=== PATIENT | male | born 1945 | race Caucasian/White ===

== ENCOUNTER 2020-06-19 08:26 | Inpatient (IN) ==
--- NOTE | 2020-06-06 15:46 | PAT Medication Instructions ---
Medication Instructions Date of Service June 06, 2020 Home Medications Calcium (Caltrate) 1,200 mg PO DAILY Betacarotine 2,500 mg PO QAM Testosterone Injection 1 dose INJ MONTHLY Potassium 1 tab PO QPM ascorbic acid (vitamin C) 1,000 mg PO QPM atorvastatin 20 mg PO QPM calcium carbonate-vitamin D3 [Calcium 600 + D(3)] 1 cap PO QPM ferrous sulfate 325 mg PO QPM magnesium oxide 400 mg PO QPM metformin 500 mg PO BID vitamin B complex 1 tab PO QPM vitamin E 800 unit PO QPM zinc acetate 50 mg PO QPM Continue as directed Testosterone Injection 1 dose INJ MONTHLY STOP taking 2 weeks before surgery If surgery is within 2 weeks, stop taking as soon as possible. vitamin E 800 unit PO QPM DO NOT take the morning of surgery Calcium (Caltrate) 1,200 mg PO DAILY Betacarotine 2,500 mg PO QAM metformin 500 mg PO BID Take evening before surgery Potassium 1 tab PO QPM ascorbic acid (vitamin C) 1,000 mg PO QPM atorvastatin 20 mg PO QPM calcium carbonate-vitamin D3 [Calcium 600 + D(3)] 1 cap PO QPM ferrous sulfate 325 mg PO QPM magnesium oxide 400 mg PO QPM metformin 500 mg PO BID vitamin B complex 1 tab PO QPM zinc acetate 50 mg PO QPM NOTHING TO EAT OR DRINK AFTER MIDNIGHT Insulin Dependent Diabetic Patients * Test your blood sugar the morning of surgery * If Blood Sugar is GREATER THAN 150, take HALF of your regular dose of: * If Blood Sugar is LESS THAN 150, DO NOT TAKE ANY: Other Notes If you have any questions please call us at [phone] or [phone] or [phone] or [phone]
--- NOTE | 2020-06-07 14:27 | Anesthesiology Consultation ---
Date of Service June 07, 2020 Assessment & Plan (1) Encounter for pre-operative examination: COVID Status: As of 06/07 assessment, patient denies travel to endemic area, known exposure/sick contacts, or symptoms of COVID19. Patient instructed that they and their household members must follow strict social distancing guidelines, wear a mask in public and avoid travel for 14 days prior to surgery. Preoperative COVID19 testing to be completed prior to surgery per surgeon's arra ngements. Patient made aware to self-isolate as much as possible between COVID testing and surgery. Chart Review Chart Review: Acceptable Risk for Surgery (pending response from PCP/clearance) and Patient seen in Pre Admission Testing Teaching & Discussion Instructed NPO after midnight before surgery, except medications with 15 cc of water. Medication instructions provided according to the PAT guidelines. History Surgery Operation Date: 06/19/20 07:45 Proposed Procedures p L4-S1 Decompression and Fusion, Spinal Cord Monitoring - Tomi Roa, Height/Weight Height: 5 ft 6 in Weight: 68.9 kg Allergies Allergy/AdvReac Type Severity Reaction Status Date / Time Penicillins AdvReac Unknown JOINT ACHES Verified 06/06/20 15:04 Medications Home Medications Medication Instructions Recorded Confirmed Last Taken Calcium (Caltrate) 1,200 mg PO DAILY #0 tab 04/07/15 Unknown Betacarotine 2,500 mg PO QAM 06/06/20 Unknown Injection 1 dose INJ MONTHLY 06/06/20 Unknown Potassium 1 tab PO QPM 06/06/20 06/06/20 Unknown ascorbic acid (vitamin C) [Vitamin 1,000 mg PO QPM 06/06/20 06/06/20 Unknown C] atorvastatin 20 mg PO QPM 06/06/20 06/06/20 Unknown calcium carbonate-vitamin D3 1 cap PO QPM 06/06/20 06/06/20 Unknown [Calcium 600 + D(3)] ferrous sulfate 325 mg PO QPM 06/06/20 06/06/20 Unknown magnesium oxide 400 mg PO QPM 06/06/20 06/06/20 Unknown metformin 500 mg PO BID 06/06/20 06/06/20 Unknown vitamin B complex 1 tab PO QPM 06/06/20 06/06/20 Unknown vitamin E 800 unit PO QPM 06/06/20 06/06/20 Unknown zinc acetate 50 mg PO QPM 06/06/20 06/06/20 Unknown Past Medical History Medical History (Updated 06/07/20 @ 14:29 by Josiah Valdez) Arthritis Cardiac murmur DX'D 2003 Chronic back pain TO RIGHT LEG Depression Diabetes mellitus, type 2 History of colorectal cancer s/p surgical excision Hyperlipidemia Kidney stones Exercise / Class Metabolic Activity II 4-5 Yardwork/Stairs/Walk up hill (Has been very limited by back pain since 09/2019, 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 Denies any chest pain.) Past Family History Family History (Updated 06/06/20 @ 15:23 by Ami Jackson RN) Father Family hx of colon cancer Family history of diabetes mellitus Grandfather (Paternal) Family hx of colon cancer Family/Other Family hx of colon cancer Past Surgical History Surgical History Colostomy in place RE-CREATED COLOSTOMY-IN PLACE CURRENTLY History of bowel resection COLORECTAL CANCER-2004 History of colonoscopy History of colostomy reversal History of cystoscopy FOR KIDNEY STONES History of repair of rotator cuff LEFT History of total hip arthroplasty RIGHT Hx of resection of liver FOR CANCER Past Anesthesia History No Hx of Anesthesia Complications and No Family Hx of Anesthesia Complications History of PONV No Hx of PONV and No Hx of Motion Sickness Social History Smoking Status: Never smoker tobacco type: smokeless tobacco Do You Dip or Chew Tobacco: Yes (1 CAN X PER DAY, ADVISED NONE AM DOS) Hx Alcohol Use: No Hx Substance Use: No Review of Systems Pt denies any recent chest pain, shortness of breath, palpitations, cough, fever, URI, or uncontrolled acid reflux. Physical Exam Vital Signs BP: 124/76 P: 81bpm SPO2: 98% RA T: 98.4 F R: 16 ENMT Mouth: + dentures (lower partial) and + chipped teeth (lower L side broken); no loose teeth Thyromental Distance: > or= 3.5 Finger Breadths (3.5) Mallampati Class: II Neck normal visual inspection; neck extension not limited Respiratory normal respiratory effort Auscultation: lungs clear to auscultation bilaterally Cardiovascular Rate/Rhythm: regular rate and regular rhythm Heart Sounds: + murmur (II/) Vessels: no carotid bruit Testing Laboratory Results 06/07/20 14:40 PT 11.7 Seconds (9.0-12.0) 06/07/20 14:40 INR 1.1 (0.9-1.1) 06/07/20 14:40 APTT 28.6 Seconds (21.0-31.0) 06/07/20 14:40 Urine Color Dark Yellow 06/07/20 Unknown Urine Appearance Cloudy (Clear) A 06/07/20 Unknown Urine pH 5.0 (4.5-7.5) 06/07/20 Unknown Ur Specific [place] 1.026 (1.000-1.030) 06/07/20 Unknown Urine Protein 2+ (Negative) H 06/07/20 Unknown Urine Glucose (UA) Negative (Negative) 06/07/20 Unknown Urine Ketones Negative (Negative) 06/07/20 Unknown Urine Nitrite Negative (Negative) 06/07/20 Unknown Ur Leukocyte Esterase 2+ (Negative) H 06/07/20 Unknown Urine WBC (Auto) >30 /hpf (0-5) H 06/07/20 Unknown Urine RBC (Auto) 0-4 /hpf (0-4) 06/07/20 Unknown U Hyaline Cast (Auto) 10-30 /lpf (0-5) H 06/07/20 Unknown U Epithel Cells (Auto) 5-10 /lpf (0-5) H 06/07/20 Unknown Urine Bacteria (Auto) Negative (Negative) 06/07/20 Unknown Blood Type O Positive 06/07/20 14:40 Antibody Screen NEGATIVE 06/07/20 14:40 Electrocardiogram Date: 06/07/20 Findings: + NSR @ (75bpm) Chest X-Ray Date: 06/07/20 Findings: + NAD
--- NOTE | 2020-06-07 15:10 | XRay Report ---
XR chest Pre-admission PA/Lat HISTORY: 75 years-old Male pat preoperative exam. No acute chest complaints COMPARISON: Chest radiograph 12/16/2013 TECHNIQUE: PA and lateral views of the chest FINDINGS: Cardiomediastinal and hilar silhouettes are within normal limits. Mitral annular calcifications. Calc ified plaque of the thoracic aortic arch. No pneumothorax, pleural effusion, airspace consolidation o r overt pulmonary edema. Degenerative changes of the shoulders and spine. IMPRESSION: No acute process. ACT 112: Negative or not required by law. The above report was generated using voice recognition software. It may contain grammatical, syntax o r spelling errors. Electronically signed by: Michael Zavala M.D. 06/07/2020 3:08 PM
[2020-06-07 15:38] LABS: Basophils # (auto) 0.01 K/uL (0-0.2); Basophils % (auto) 0.2 %; Eosinophils # (auto) 0.04 K/uL (0-0.5); Eosinophils % (auto) 0.7 %; Hematocrit (blood only) 42.4 % (42-52); Hemoglobin 14.6 g/dL (14.0-18.0); Immature Granulocytes # (auto) 0.01 K/uL (0.00-0.02); Immature Granulocytes % (auto) 0.2 %; Lymphocytes # (auto) 0.94 K/uL (1.2-3.4); Lymphocytes % (auto) 15.5 %; Mean Corpuscular Hgb Conc 34.4 g/dL (32-36); Mean Platelet Volume 11.4 fL (7.4-10.4); Monocytes # (auto) 0.47 K/uL (0.11-0.59); Monocytes % (auto) 7.8 %; Neutrophils # (auto) 4.58 K/uL (1.4-6.5); Neutrophils % (auto) 75.6 %; Platelet Count 120 K/uL (130-400); RDW Coefficient of Variation 13.7 % (11.5-14.5); RDW Standard Deviation 45.1 fL (36.4-46.3); Red Blood Count 4.71 M/uL (4.7-6.1); White Blood Count 6.05 K/uL (4.8-10.8)
[2020-06-07 15:44] LABS: Appearance Urine Cloudy (Clear); Bacteria Urine Automated Negative (Negative); Bilirubin Urine Negative (Negative); Blood Urine 2+ (Negative); Color Urine Dark Yellow; Glucose Urine UA Negative (Negative); Ketones Urine Negative (Negative); Leukocyte Esterase Urine 2+ (Negative); Nitrite Urine Negative (Negative); Protein Urine 2+ (Negative); RBC Urine Automated 0-4 /hpf (0-4); Specific Gravity Urine 1.026 (1.000-1.030); Urobilinogen Urine Negative (Negative); WBC Urine Automated >30 /hpf (0-5)
[2020-06-07 15:52] LABS: INR 1.1 (0.9-1.1); Partial Thromboplastin Time 28.6 Seconds (21.0-31.0); Prothrombin Time 11.7 Seconds (9.0-12.0)
[2020-06-07 16:17] LABS: Calcium Oxalate Crystals Urine Present (None Prsent); Mucus Urine Present (None Prsent)
--- NOTE | 2020-06-08 06:36 | Electrocardiogram Report ---
Test Reason : Blood Pressure : / mmHG Vent. Rate : 075 BPM Atrial Rate : 075 BPM P-R Int : 156 ms QRS Dur : 096 ms QT Int : 374 ms P-R-T Axes : 037 035 049 degrees QTc Int : 417 ms Normal sinus rhythm Normal ECG When compared with ECG of 16-DEC-2013 12:34, No significant change was found Confirmed by Lobito Paulino ([id number]) on 06/08/2020 6:36:31 AM Referred By: Tomi Roa Confirmed By:Lobito Paulino
[~2020-06-19 08:26] MED LIST: CLINDAMYCIN 600 MG/54 ML BAG IV SCH; GABAPENTIN 300 MG CAP PO SCH; LR 15ML/HR IV SCH
[2020-06-19] MEDS ORDERED: ePHEDrine sulfate 50 MG/ML AMP IV PRN (09:08)
[2020-06-19] MEDS ORDERED: ONDANSETRON INJ 2 MG/ML 2 ML VIAL IV PRN ×2 (09:08→13:59)
[2020-06-19] MEDS ORDERED: ATROPINE SULFATE 0.1 MG/ML 10ML SYR IV PRN (09:08)
--- NOTE | 2020-06-19 09:28 | History & Physical Bridge Note ---
Date of Service June 19, 2020 History & Physical Bridge Note I have examined the patient, reviewed the History & Physical and in the interval since the performance of the History & Physical I have noted the following changes of clinical significance: no changes noted
--- NOTE | 2020-06-19 09:29 | History & Physical Report ---
Date of Service June 19, 2020 Assessment & Plan (1) Neurogenic claudication due to lumbar spinal stenosis: Admission and Anticipated Discharge Date Admission Date: L4-S1 decompression fusion History of Present Illness Chief Complaint: Back and leg pain Primary Care Provider: Niraj Cornejo MD This is a 75-year-old male who presents with worsening back and leg pain. After failing course of nonoperative care is here for surgical invention. Allergies Allergy/AdvReac Type Severity Reaction Status Date / Time Penicillins AdvReac Unknown JOINT ACHES Verified 06/19/20 09:00 Home Medications Home Medications Medication Instructions Recorded Confirmed Type Calcium (Caltrate) 1,200 mg PO DAILY #0 tab 04/07/15 History Betacarotine 2,500 mg PO QAM 06/06/20 History Injection 1 dose INJ MONTHLY 06/06/20 06/19/20 History Potassium 1 tab PO QPM 06/06/20 06/19/20 History ascorbic acid (vitamin C) [Vitamin 1,000 mg PO QPM 06/06/20 06/19/20 History C] atorvastatin 20 mg PO QPM 06/06/20 06/06/20 History calcium carbonate-vitamin D3 1 cap PO QPM 06/06/20 06/06/20 History [Calcium 600 + D(3)] ferrous sulfate 325 mg PO QPM 06/06/20 06/06/20 History magnesium oxide 400 mg PO QPM 06/06/20 06/19/20 History metformin 500 mg PO BID 06/06/20 06/19/20 History vitamin B complex 1 tab PO QPM 06/06/20 06/19/20 History vitamin E 800 unit PO QPM 06/06/20 06/19/20 History zinc acetate 50 mg PO QPM 06/06/20 06/19/20 History Past Med/Surg History Medical History (Updated 06/19/20 @ 09:29 by Tomi Roa DO) Arthritis Cardiac murmur DX'D 2004 Chronic back pain TO RIGHT LEG Depression Diabetes mellitus, type 2 History of colorectal cancer s/p surgical excision Hyperlipidemia Kidney stones Surgical History Colostomy in place RE-CREATED COLOSTOMY-IN PLACE CURRENTLY History of bowel resection COLORECTAL CANCER-2005 History of colonoscopy History of colostomy reversal History of cystoscopy FOR KIDNEY STONES History of repair of rotator cuff LEFT History of total hip arthroplasty RIGHT Hx of resection of liver FOR CANCER Family History (Updated 06/06/20 @ 15:23 by Ami Jackson RN) Father Family hx of colon cancer Family history of diabetes mellitus Grandfather (Paternal) Family hx of colon cancer Family/Other Family hx of colon cancer Social History Smoking Status: Never smoker Second Hand Exposure: Yes (EDGAR IN LAW); Do You Dip or Chew Tobacco: Yes (1 CAN X PER DAY, ADVISED NONE AM DOS); Hx Alcohol Use: No Hx Substance Use: No Preferred Language: Lebanese Communication Ability: Effective Golf Club Manager Required: No Beliefs That Will Affect Care: None Current Living Situation: Family Other Information That Helps Us Care for You: No Feels Safe at Home: Yes Safety Concerns: Feels Safe At This Time Physical Exam Physical Exam: Patient is alert and oriented neurologically intact. Heart regular rate and rhythm. Lungs clear to auscultation.
[2020-06-19] MEDS ORDERED: BACITRACIN INJ 50,000 UNIT VIAL ONE (09:39)
[2020-06-19] MEDS ORDERED: BUPIVACAINE/EPINEPHRINE 0.25% 1:200,000 30 ML VIAL ONE ×2 (09:39→10:20)
[2020-06-19] MEDS ORDERED: fentaNYL citrate 100 MCG/2 ML VIAL ONE (09:44)
[2020-06-19] MEDS ORDERED: MIDAZOLAM HCL 1 MG/ML 2ML VIAL ONE (09:44)
[2020-06-19] MEDS ORDERED: ROCURONIUM BROMIDE 10 MG/ML 5 ML VIAL IV ONE (09:50)
[2020-06-19] MEDS ORDERED: LIDOCAINE HCL 2% 2 ML VIAL/AMP(20MG/ML) INFIL ONE (09:50)
[2020-06-19] MEDS ORDERED: PROPOFOL IV EMULSION 10 MG/ML 20 ML VIAL IV ONE (09:50)
[2020-06-19] MEDS ORDERED: DEXAMETHASONE SOD INJ 4 MG/ML VIAL ONE (09:50)
[2020-06-19] MEDS ORDERED: ONDANSETRON INJ 2 MG/ML 2 ML VIAL ONE (09:50)
[2020-06-19] MEDS ORDERED: FLOSEAL HEMOSTATIC MATRIX 10ML TOP ONE ×2 (10:55)
[2020-06-19] MEDS ORDERED: HYDROmorphone INJ 2 MG/ML SYR/VIAL ONE (11:24)
[2020-06-19] MEDS ORDERED: GLYCOPYRROLATE 0.2 MG/ML VIAL ONE (11:43)
--- NOTE | 2020-06-19 12:01 | Operative Report ---
Post Operative Report Pre & Post Diagnosis Operation Date: 06/19/20 10:00 Pre-Op Diagnosis: Lumbar spinal stenosis with neurogenic claudication and spondylolisthesis L4-L5 Post-Op Diagnosis: Same I identified the patient and participated in the time-out.: Yes Procedure Operation Date: 06/19/20 10:00 Actual Procedures #1 lumbar decompression with bilateral medial facetectomies and foraminotomies L3-4, L4-5 L5-S1. #2 posterior spinal fusion L4-5 L5-S1. #3 placement posterior instrumentation L4-5 L5-S1. #4 interbody fusion L4-5 and L5-S1. #5 placement peek cage 13 x 26 mm at L4-5 and L5-S1. #6 placement of locally harvested morselized autograft in the posterior lateral gutters. #7 placement infuse collagen sponge, master graft in the posterior gutters and ostial space. Surgeon Tomi Roa, [employer] I Assembler Carole Perez Estimated Blood Loss 150 Findings Consistent with Post-Op Diagnosis Specimens None Indications This is a 75-year-old male presents with marked decline in status and continued leg pain. After failing course of nonoperative care is here for surgical invention. Description of Procedure Patient was met with identified informed consent obtained. Patient was then taken to the operative suite underwent an patient placed in a prone position the Aime table on top Jono frame. All bony prominences well-padded eyes inspected to ensure no external pressure placed upon the. This point the lumbar spine is prepped and draped in a sterile fashion. Sharp dissection with the assistance of Bovie cautery was performed down to and exposing the lamina and transverse processes of L4-L5 and the sacral ala bilaterally. From caudal to cephalad fashion complete laminectomy of L5 L4 and partial laminectomy of L3 was performed including bilateral medial facetectomies and foraminotomies addressing all spinal stenosis. Pedicle screw was then placed in L4 and L5 and S1 levels bilaterally with assistance of fluoroscopy and proper sized luis e placed. By way of a transforaminal approach on the right a complete discectomy of L5-S1 was performed endplates coated to subcortical leading bone and a 13 x 26 mm peek cage filled with osteo-bone graft tapped in position. Then proceeded L4-[address] of a transforaminal approach on the right a complete discectomy was performed endplates coated to subcortical bleeding bone and again a 13 x 26 mm peek cage filled with osteo-bone graft tapped in position. The rods were then locked in final position bilaterally. The transverse processes of L4-L5 and sacral ala burred to subcortical bleeding bone. Infuse collagen sponge master graft local autograft was placed in the posterior gutters. 15 round SYBIL drain inserted. The incision was then closed with 1 Vicryl in the fascia 2-0 Vicryl subcutaneously and 4 Monocryl for final skin closure. Steri-Strip sterile dressings placed. Patient waken taken PACU stable condition. Please note spinal cord monitoring was utilized that the procedure no changes noted. Lastly Carole Perez was present the entire surgery involved in patient positioning complex portions of the surgery and final skin closure. I attest to the content of the Intraoperative Record and any orders documented therein. Any exceptions are noted below.
--- NOTE | 2020-06-19 12:28 | Fluoroscopy Report ---
FL lumbar spine 2-3V CLINICAL HISTORY: L4-S1 DECOMPRESSION AND FUSION COMPARISON STUDY: Lumbar spine radiographs August 08, 2013. FLUOROSCOPY TIME: 24 seconds. FLUOROSCOPIC IMAGES: 2 FINDINGS: These images demonstrate L4-L5 and L5-S1 discectomies with interbody spacer placement. Post erior decompression is noted with bilateral pedicle screws at the L4, L5 and S1 levels. Hardware is i ntact. IMPRESSION: Fluoroscopy provided for L4-L5 and L5-S1 discectomies with posterior decompression and L 4-S1 bilateral pedicle screw fusion. ACT 112: Negative or not required by law. Electronically signed by: Alexi Robin M.D. 06/19/2020 12:26 PM
[2020-06-19] MEDS: fentaNYL citrate 100 MCG/2 ML VIAL IV PRN ×4 (12:39→13:12)
--- NOTE | 2020-06-19 13:08 | Anesthesiology Progress Note ---
Date of Service June 19, 2020 Anesthesia Post Procedure Vital Signs Vital Signs: Temp Pulse Pulse Resp BP BP Pulse Ox 06/19/20 13:00 98.1 F 72 12 140/72 100 06/19/20 12:50 75 12 143/71 H 98 06/19/20 12:40 70 14 143/76 H 100 06/19/20 12:30 71 16 144/65 H 100 06/19/20 12:20 97.0 F L 72 14 148/65 H 100 06/19/20 09:26 98.1 F 66 18 157/70 H 99 Pain Intensity Lower Back: Pain Intensity: 4 Transfer of Care Handoff Completed per policy Notes Mental Status: alert / awake / arousable and participated in evaluation Patient Amnestic to Procedure: Yes Nausea / Vomiting: adequately controlled Pain: adequately controlled Airway Patency, RR, SpO2: stable & adequate BP & HR: stable & adequate Hydration State: stable & adequate Anesthetic Complications: no major complications apparent and Pt Satisfied with anesthetic care
[2020-06-19] MEDS ORDERED: LORazepam 0.5 MG TAB PO PRN (13:59)
[2020-06-19] MEDS ORDERED: METOCLOPRAMIDE HCL INJ 5 MG/ML 2 ML VIAL IV PRN (13:59)
[2020-06-19] MEDS ORDERED: TRAMADOL HCL 50 MG TABLET PO PRN (13:59)
[2020-06-19] MEDS ORDERED: DO NOT ADMINISTER PNEUMOCOCCAL VACCINE PRN (13:59)
[2020-06-19] MEDS ORDERED: DO NOT ADMINISTER FLU VACCINE PRN (13:59)
[2020-06-19] MEDS ORDERED: ACETAMINOPHEN 1,000 MG/100 ML VIAL IV PRN (13:59)
[2020-06-19] MEDS ORDERED: HYDROmorphone INJ 1 MG/ML SYRINGE IV PRN (13:59)
[2020-06-19] MEDS ORDERED: HYDROmorphone INJ 0.5 MG/0.5 ML SYR IV PRN (13:59)
[2020-06-19] MEDS ORDERED: bisacodyL 10 MG SUPP PR PRN (13:59)
[2020-06-19] MEDS ORDERED: ALUMINUM/MAGNESIUM SUSP 30 ML UDC PO PRN (13:59)
[2020-06-19] MEDS ORDERED: SOD PHOSPHATE/SOD BIPHOSPHATE ENEMA 132 ML BTL PR PRN (13:59)
[2020-06-19] MEDS ORDERED: NALOXONE HCL 0.4 MG/1 ML VIAL/CARP IV PRN (13:59)
[2020-06-19] MEDS ORDERED: LORazepam 0.5 MG/1 ML VIAL IV PRN (13:59)
[2020-06-19] MEDS ORDERED: ONDANSETRON 4 MG OD TAB PO PRN (13:59)
[2020-06-19] MEDS ORDERED: PROMETHAZINE HCL 12.5 MG in SODIUM CHLORIDE 0.9% 50 ML IV PRN (13:59)
[2020-06-19] MEDS ORDERED: FAMOTIDINE 20 MG TAB PO PRN (13:59)
[2020-06-19] MEDS ORDERED: MAGNESIUM HYDROXIDE SUSP 30 ML UDC PO PRN (13:59)
[2020-06-19] MEDS: SODIUM CHLORIDE 0.9% 1000ML 1,000 ML IV SCH (14:36)
--- NOTE | 2020-06-19 14:51 | Hospitalist Consultation ---
Date of Consultation June 19, 2020 Assessment & Plan (1) Neurogenic claudication due to lumbar spinal stenosis: - Pain management, bowel regimen per the primary team - PT/OT consults - Follow am CBC to monitor for acute blood loss - no anticoagulation for now (2) DJD (degenerative joint disease) of hip: - hx of such, chronic (3) Hyperlipidemia: - Cont atorvastatin 20 mg qpm (4) History of colorectal cancer: - s/p resection in 2004 with creation of colostomy, 2005 reversal of colostomy, then re-position colostomy in 2007 due to bile acid and constant diarrhea. Had liver mets around 2007 which required 1/3 liver surgical resection. Follows with oncology at [facility]. (5) Diabetes mellitus, type 2: - A1C=6.0 on 05/18/2020 - Follow bmp glucose with am labs - Hold metformin during inpt stay (6) Depression: - controlled (7) Arthritis: - Cont calcium, Vit D and supplements (8) DVT prophylaxis: - teds, scds CODE: Full Dispo: From home, lives with son, likely to remain in the hospital x 2 days Supervising Physician Co-Signing Physician Notes Patient was seen and examined independently I discussed the case with Aviva Diaz PAC I reviewed pertinent past medical social family history and also the plan of care and agree with the plan of care. Patient seen postoperatively is having some significant radicular pain at times after prolonged sitting No complaints or problems. He continues to have no issues with his colostomy, metformin is held for his diabetes been a loose sliding scale as patient did receive dexamethasone intraoperatively Physical examination is with regular heart and clear lungs Medical management in the perioperative period pain attention to vital signs and diabetes Any exceptions will be noted below History of Present Illness Attending Physician: Tomi Roa, History of Present Illness This is a 75 yo M with PMHx of DM II, HLD, hx colorectal cancer, depression, chronic back pain, DJD, arthritis who presents for elective spinal surgery by Dr. Roa on 06/19/2020 for lumbar spinal stenosis with neurogenic claudication and spondylolisthesis L4-L5. Patient is seen with his 2 sons at bedside. He reports that he is doing quite well, just finished a cup of tea and sherbet. He denies pain, can feel sensation down into both of his legs, can wiggle his toes and bend his knees without difficulty. He has complaints of chronic right leg pain which shoots down from his back to his ankle, this is been going on for some time prior to the surgery. He lives at home with 1 of his sons who is not present today. He denies any other acute complaints. Allergies Allergy/AdvReac Type Severity Reaction Status Date / Time Penicillins AdvReac Unknown JOINT ACHES Verified 06/19/20 09:00 Home Medications Home Medications Medication Instructions Recorded Confirmed Type Calcium (Caltrate) 1,200 mg PO DAILY #0 tab 04/07/15 History Betacarotine 2,500 mg PO QAM 06/06/20 History Injection 1 dose INJ MONTHLY 06/06/20 06/19/20 History Potassium 1 tab PO QPM 06/06/20 06/19/20 History ascorbic acid (vitamin C) [Vitamin 1,000 mg PO QPM 06/06/20 06/19/20 History C] atorvastatin 20 mg PO QPM 06/06/20 06/06/20 History calcium carbonate-vitamin D3 1 cap PO QPM 06/06/20 06/06/20 History [Calcium 600 + D(3)] ferrous sulfate 325 mg PO QPM 06/06/20 06/06/20 History magnesium oxide 400 mg PO QPM 06/06/20 06/19/20 History metformin 500 mg PO BID 06/06/20 06/19/20 History vitamin B complex 1 tab PO QPM 06/06/20 06/19/20 History vitamin E 800 unit PO QPM 06/06/20 06/19/20 History zinc acetate 50 mg PO QPM 06/06/20 06/19/20 History Patient History Medical History (Updated 06/19/20 @ 14:44 by Jodie Ruby PA-C) Arthritis Cardiac murmur DX'D 2004 Chronic back pain TO RIGHT LEG Depression Diabetes mellitus, type 2 History of colorectal cancer s/p surgical excision Hyperlipidemia Kidney stones Surgical History Colostomy in place RE-CREATED COLOSTOMY-IN PLACE CURRENTLY History of bowel resection COLORECTAL CANCER-2005 History of colonoscopy History of colostomy reversal History of cystoscopy FOR KIDNEY STONES History of repair of rotator cuff LEFT History of total hip arthroplasty RIGHT Hx of resection of liver FOR CANCER Family History (Updated 06/06/20 @ 15:23 by Ami Jackson RN) Father Family hx of colon cancer Family history of diabetes mellitus Grandfather (Paternal) Family hx of colon cancer Family/Other Family hx of colon cancer Social History Smoking Status: Never smoker Second Hand Exposure: Yes (EDGAR IN LAW); Do You Dip or Chew Tobacco: Yes (1 CAN X PER DAY, ADVISED NONE AM DOS); Hx Alcohol Use: No Hx Substance Use: No Preferred Language: Lithuanian Communication Ability: Effective Applications Development Consultant Required: No Beliefs That Will Affect Care: None marital status: Single Current Living Situation: Family Other Information That Helps Us Care for You: No Feels Safe at Home: Yes Safety Concerns: Feels Safe At This Time Review of Systems Review of Systems: Constitutional: No fever, sweats or chills Eyes: No diplopia, no worsening or blurred vision ENT: normal hearing, no trouble swallowing Respiratory: No cough, sputum, dyspnea at rest or on exertion Cardiovascular: No chest pain, tightness or palpitations Abdomen: No pain, nausea, vomiting, diarrhea or constipation, + colostomy s/p colorectal cancer Musculoskeletal: No joint pain, calf pain, swelling Neurologic: No weakness, numbness/tingling, or balance problems Psychiatric: No anxiety or depression Skin: No rash or itch Physical Exam Physical Exam: General: awake, alert, no apparent distress, sitting up in bed, just finished eating. Head: Normocephalic, atraumatic ENT: PERRL, EOMI, no pharyngeal exudate, mucous membranes moist Chest: Clear to auscultation, 2L NC, no adventitious breath sounds Cardiac: Regular rate and rhythm, + loud systolic murmur grade 3/6, no JVD, normal peripheral pulses, good capillary refill Abdominal: NABS x 4 quadrants, soft, nondistended, nontender to palpation, + colostomy LLQ, no rebound, guarding Extremities: Normal inspection, no peripheral edema or erythema, calfs nontender to palpation Psych: Normal mood and affect Neuro: AAO x 3, no gross motor deficits, speech is clear, no peripheral sensory deficits Skin: no rash or erythema Results & Data Results & Data ([facility]) Vital Signs (Past 12 Hours) Vital Signs Temp Pulse Pulse Resp BP BP Pulse Ox 06/19/20 14:18 36.8 C 72 18 129/78 100 06/19/20 13:50 36.8 C 100 H 18 132/74 100 06/19/20 13:10 73 15 128/68 98 06/19/20 13:00 36.7 C 72 12 140/72 100 06/19/20 12:50 75 12 143/71 H 98 06/19/20 12:40 70 14 143/76 H 100 06/19/20 12:30 71 16 144/65 H 100 06/19/20 12:20 36.1 C L 72 14 148/65 H 100 06/19/20 09:26 36.7 C 66 18 157/70 H 99 PG Care Time/CCT Total # of Minutes Spent Total Time Spent with Patient: Total time spent is greater than 50% in coordination of care (as documented) at patient's floor/unit and/or counseling patient: Coding Level of Care Code 04344 Inpt Consult Level 4 Diagnoses Neurogenic claudication due to lumbar spinal stenosis M48.062 DJD (degenerative joint disease) of hip M16.9 Hyperlipidemia E78.5 History of colorectal cancer Z85.048 Diabetes mellitus, type 2 E11.9 Depression F32.9 Arthritis M19.90 DVT prophylaxis Z29.9
[2020-06-19] MEDS: CEFAZOLIN 1000MG 1,000 MG/7.5 ML SYR IV SCH (18:11)
[2020-06-19] MEDS: DOCUSATE SODIUM/SENNA 50/8.6MG TAB PO SCH (18:25)
[2020-06-19] MEDS ORDERED: GLUCOSE 10 TABS/TUBE PO PRN (19:59)
[2020-06-19] MEDS ORDERED: GLUCAGON FOR INJ 1 MG VIAL SQ PRN (19:59)
[2020-06-19] MEDS ORDERED: DEXTROSE 50% 50 ML SYRINGE IV PRN (19:59)
[2020-06-19] MEDS ORDERED: GLUCOSE 40% GEL 15 GM TUBE PO PRN (19:59)
[2020-06-19] MEDS ORDERED: CARBOHYDRATES FOR HYPOGLYCEMIA PO PRN (19:59)
[2020-06-19] MEDS: ATORVASTATIN 20 MG TAB PO SCH (20:55)
[2020-06-19] MEDS: VITAMIN B COMPLEX TAB PO SCH (20:55)
[2020-06-19] MEDS: MAGNESIUM OXIDE 400 MG TAB PO SCH (20:55)
[2020-06-19] MEDS: TOCOPHERYL, DL-ALPHA 400 UNITS CAP PO SCH (20:55)
[2020-06-19] MEDS: CALCIUM 600MG + VIT D 400 IU TAB PO SCH (20:55)
[2020-06-19] MEDS: ASCORBIC ACID 500 MG TAB PO SCH (20:55)
[2020-06-19] MEDS: FERROUS SULFATE 325 MG TAB PO SCH (20:55)
[2020-06-19] MEDS ORDERED: NON-FORMULARY MEDICATION (Potassium 1 TAB) PO SCH (21:00)
[2020-06-19] MEDS ORDERED: ZINC ACETATE 50 MG PO SCH (21:00)
[2020-06-19] MEDS: INSULIN ASPART 100 UNITS/ML 3 ML PEN SC SCH (21:05)
[2020-06-20] MEDS: SODIUM CHLORIDE 0.9% 1000ML 1,000 ML IV SCH ×2 (01:22→17:07)
[2020-06-20] MEDS: CEFAZOLIN 1000MG 1,000 MG/7.5 ML SYR IV SCH (03:09)
[2020-06-20] MEDS: OXYCODONE HCL IR 5 MG TAB (IMMEDIATE RELEASE) PO PRN ×2 (03:11→23:28)
[2020-06-20] MEDS: ACETAMINOPHEN 500 MG TAB PO PRN (06:23)
[2020-06-20] MEDS: POLYETHYLENE (MIRALAX) 17 GM PACK PO SCH ×3 (06:23→17:15)
[2020-06-20 07:34] LABS: Eosinophils # (auto) 0.01 K/uL (0-0.5); Eosinophils % (auto) 0.1 %; Hemoglobin 11.1 g/dL (14.0-18.0); Immature Granulocytes # (auto) 0.02 K/uL (0.00-0.02); Immature Granulocytes % (auto) 0.3 %; Lymphocytes # (auto) 0.99 K/uL (1.2-3.4); Mean Corpuscular Hgb Conc 33.6 g/dL (32-36); Mean Corpuscular Volume 92.2 fL (80-100); Mean Platelet Volume 11.3 fL (7.4-10.4); Monocytes # (auto) 0.75 K/uL (0.11-0.59); Monocytes % (auto) 9.9 %; Neutrophils # (auto) 5.84 K/uL (1.4-6.5); Neutrophils % (auto) 76.7 %; Platelet Count 103 K/uL (130-400); RDW Coefficient of Variation 13.5 % (11.5-14.5); RDW Standard Deviation 45.1 fL (36.4-46.3); Red Blood Count 3.58 M/uL (4.7-6.1); White Blood Count 7.61 K/uL (4.8-10.8)
[2020-06-20 08:01] LABS: Estimated Average Glucose 126 mg/dl
[2020-06-20 08:07] LABS: BUN Creatinine Ratio 11.2 (10-20); Calcium 8.4 mg/dl (8.5-10.1); Creatinine Clr Calc Pharmacy 60.3 ml/min; Est GFR (African American) 90.9; Est GFR (Non-African American) 78.4; Potassium 3.8 mmol/L (3.5-5.1)
--- NOTE | 2020-06-20 08:09 | Anesthesiology Progress Note ---
Date of Service June 20, 2020 Anesthesia Post Procedure Vital Signs Vital Signs: Temp Pulse Pulse Resp BP BP Pulse Ox 06/20/20 07:37 36.9 C 79 16 103/55 L 99 06/20/20 03:14 37.0 C 81 15 140/70 100 06/20/20 00:18 37.1 C 78 16 115/70 99 06/19/20 20:07 36.8 C 81 17 146/74 H 98 06/19/20 16:22 36.6 C 74 18 123/73 99 06/19/20 14:18 36.8 C 72 18 129/78 100 06/19/20 13:50 36.8 C 100 H 18 132/74 100 06/19/20 13:10 73 15 128/68 98 06/19/20 13:00 36.7 C 72 12 140/72 100 06/19/20 12:50 75 12 143/71 H 98 06/19/20 12:40 70 14 143/76 H 100 06/19/20 12:30 71 16 144/65 H 100 06/19/20 12:20 36.1 C L 72 14 148/65 H 100 06/19/20 09:26 36.7 C 66 18 157/70 H 99 Notes Mental Status: alert / awake / arousable Patient Amnestic to Procedure: Yes Nausea / Vomiting: adequately controlled Pain: adequately controlled Airway Patency, RR, SpO2: stable & adequate BP & HR: stable & adequate Hydration State: stable & adequate Anesthetic Complications: no major complications apparent and Pt Satisfied with anesthetic care
[2020-06-20] MEDS: INSULIN ASPART 100 UNITS/ML 3 ML PEN SC SCH ×4 (08:31→20:43)
[2020-06-20 08:42] LABS: Appearance Urine Clear (Clear); Bacteria Urine Automated Negative (Negative); Bilirubin Urine Negative (Negative); Blood Urine Negative (Negative); Color Urine Yellow; Epithelial Cell Urine Auto >30 /lpf (0-5); Glucose Urine UA Negative (Negative); Ketones Urine Negative (Negative); Leukocyte Esterase Urine 2+ (Negative); Nitrite Urine Negative (Negative); Protein Urine Trace (Negative); Specific Gravity Urine 1.023 (1.000-1.030); Urobilinogen Urine Negative (Negative); WBC Urine Automated >30 /hpf (0-5)
[2020-06-20 09:22] LABS: Mucus Urine Present (None Prsent)
--- NOTE | 2020-06-20 11:06 | Hospitalist Progress Note ---
Date of Service June 20, 2020 Assessment & Plan (1) Neurogenic claudication due to lumbar spinal stenosis: * POD #1 L4-S1 decompression with Dr. Roa on 06/19. Pre-op h/h 14.6/42.4. EBL 150cc. * PT/OT/pain management/DVT prophylaxis per primary service * H//h 11.1/33 on AM labs -- likely acute blood loss following surgery with SYBIL output as well as some dilutional from IVF. SYBIL output cumulative 915mL (780/135) -- continue to monitor * CBC in AM (2) UTI (urinary tract infection): * Previous UTI with Enteroccocus species treated with Cipro (was sensitive), although repeat UA still seems infected * On clinda for surgery for prophylaxis * Follow repeat culture -- will treat as needed (3) Diabetes mellitus, type 2: * A1c 6.0. Recieved steroids operatively * Holding outpatient metformin * ISS while inpatient * Controlled, continue to monitor (4) Hyperlipidemia: * Continue atorvastatin 20 mg HS (5) History of colorectal cancer: * s/p resection in 2004 with creation of colostomy, 2006 reversal of colostomy, then re-position colostomy in 2007 due to bile acid and constant diarrhea. * Had liver mets around 2007 which required 1/3 liver surgical resection. * Follows with oncology at [facility]. (6) Depression: * controlled off medications (7) DJD (degenerative joint disease) of hip: * hx of such, chronic (8) Arthritis: * Cont calcium, Vit D and supplements (9) Acute blood loss anemia: * See above (10) DVT prophylaxis: * teds, scds CODE: Full Dispo: From home, lives with son. Per discussion with Dr. Roa, possible discharge tomorrow. Hospitalist service will follow along. Admission and Anticipated Discharge Date Admission Date: June 19, 2020 Supervising Physician Co-Signing Physician Notes Attending Attestation - Chart reviewed, care plan d/w GASPER Hannon. I agree w/ the hernandez components of her documentation. POD #1 s/p lumbar decompression-fusion procedure by Dr Roa. Temp 37.9 today - 2nd to undertreated UTI dx as outpatient? Agree w/ management per Ms Hannon. Roque Parikh MD Subjective Patient evaluated this morning. States pain well controlled. Concerns with "pulling a stitch" when getting up in bed but has been ambulating without much difficulty. Sensation to LE improved. Able to ambulate with walker to the bathroom. Discussed possible UTI prior to surgery. He states Dr Pedro Hui sent in a prescription but he is unsure of the name. Review of medical clearance with Enterococcus faecalis and was treated with ciprofloxacin as he is allergic to penicillins. Discussed repeating UA and possibly needing to place on antibiotics although he denies urinary frequency, urgency or dysuria at this time. Denies fever, chills, chest pain, shortness of breath. Previous good experience with home health and thinks that will be possible at discharge as rehab had not been discussed yet. Awaiting PT/OT today so that he can take a nap. Has had his SYBIL emptied approximately 6-7 times per his account. Ostomy with normal output per patient. Has been changing every 2-3 days due to sore under. Will change in AM prior to discharge. Review of Systems Review of Systems: All systems reviewed & are unremarkable except as noted in HPI & below Physical Exam Constitutional: WD/WN, vitals as above no acute distress Eyes: + anicteric sclerae and PERRL ENMT: external ear and nose normal, oropharynx normal Neck: normal visual inspection Respiratory: normal respiratory effort, lungs clear to auscultation Cardiovascular: Rate/Rhythm: regular rate and regular rhythm Heart Sounds: + murmur (2/6 systolic ejection murmur) Vessels: no JVD Extremities: no calf tenderness and no edema 2+ dp, pt pulses bilaterally Gastrointestinal (Abdomen): Inspection/Auscultation: normal bowel sounds Percussion/Palpation: abdomen soft; abdomen nontender ostomy to LLQ. c/d/i without evidence of erythema or leakage appreciated. liquid stool present (emptied this morning per patient) Musculoskeletal: strength equal 4/5 b/l LE NVI Dressing to lumbar spine c/d/i with SYBIL with approximately 75cc bloody drainage Skin: warm, moist Neurologic: patellar DTR's 2+ bilat, sensation intact and PERRL, EOMI, accommodation nl, no face palsy, no dysarthria Psychiatric: A+Ox3, euthymic affect Lymphatic: no cervical or axillary lymphadenopathy Results & Data Results & Data ([facility]) Vital Signs (Past 12 Hours) Vital Signs Temp 36.9 C 06/20/20 07:37 Pulse 79 06/20/20 07:37 Resp 16 06/20/20 07:37 BP 103/55 L 06/20/20 07:37 Pulse Ox 99 06/20/20 07:37 Intake & Output 06/19/20 06/20/20 06/20/20 18:59 06:59 18:59 Intake Total 1454 / 2834 1380 / 2834 Output Total 935 / 2280 1345 / 2280 805 / 805 Balance 519 / 554 35 / 554 -805 / -805 Weight 69.003 kg Intake: IV 454 / 1434 980 / 1434 CLEOCIN 600 mg In 54 ml @ 100 54 / 54 mls/hr IV PREOP EFRAÍN Rx#: [id number] Lr 1,000 ml @ 15 mls/hr IV . 400 / 400 Q24H EFRAÍN Rx#:[id number] Nss 1000ML 1,000 ml @ 100 mls/ 980 / 980 hr IV .Q10H EFRAÍN Rx#:[id number] IV Perioperative 1000 / 1000 Oral 400 / 400 Output: Estimated Blood Loss 200 / 200 Urine Amount (Catheter) 200 / 1050 850 / 1050 750 / 750 Colon/Indwelling 200 / 1050 850 / 1050 750 / 750 Gastric Drainage 125 / 250 125 / 250 Left Lower Quadrant Ileostomy/ 125 / 250 125 / 250 Colostomy Drain Output 410 / 780 370 / 780 55 / 55 Lower Back SYBIL 410 / 780 370 / 780 55 / 55 Laboratory Results 06/20/20 06/20/20 06/20/20 Range/Units Unknown 08:09 07:24 WBC (4.8-10.8) K/uL RBC (4.7-6.1) M/uL Hgb (14.0-18.0) g/dL Hct (42-52) % MCV (80-100) fL MCH (25-34) pg MCHC (32-36) g/dL RDW Std Deviation (36.4-46.3) fL RDW Coeff of Marek (11.5-14.5) % Plt Count (130-400) K/uL MPV (7.4-10.4) fL Immature Gran % (Auto) % Neut % (Auto) % Lymph % (Auto) % [place] % (Auto) % Eos % (Auto) % Baso % (Auto) % Neut # (Auto) (1.4-6.5) K/uL Lymph # (Auto) (1.2-3.4) K/uL [place] # (Auto) (0.11-0.59) K/uL Eos # (Auto) (0-0.5) K/uL Baso # (Auto) (0-0.2) K/uL Immature Gran # (Auto) (0.00-0.02) K/uL Sodium (136-145) mmol/L Potassium (3.5-5.1) mmol/L Chloride (98-107) mmol/L Carbon Dioxide (21-32) mmol/L Anion Gap (3-11) BUN (7-18) mg/dl Creatinine (0.6-1.4) mg/dl Est Cr Clr Drug Dosing ml/min Est GFR ( Amer) Est GFR (Non-Af Amer) BUN/Creatinine Ratio (10-20) Glucose (70-99) mg/dl POC Glucose 142 H (70-99) mg/dl Estimat Average Glucose 126 mg/dl Hemoglobin A1c 6.0 H (4.5-5.6) % Calcium (8.5-10.1) mg/dl Urine Color Yellow Urine Appearance Clear (Clear) Urine pH 5.0 (4.5-7.5) Ur Specific [place] 1.023 (1.000-1.030) Urine Protein Trace H (Negative) Urine Glucose (UA) Negative (Negative) Urine Ketones Negative (Negative) Urine Blood Negative (Negative) Urine Nitrite Negative (Negative) Urine Bilirubin Negative (Negative) Urine Urobilinogen Negative (Negative) Ur Leukocyte Esterase 2+ H (Negative) Urine WBC (Auto) >30 H (0-5) /hpf Urine RBC (Auto) 5-10 H (0-4) /hpf U Hyaline Cast (Auto) 1-5 (0-5) /lpf U Epithel Cells (Auto) >30 H (0-5) /lpf Urine Bacteria (Auto) Negative (Negative) Ur Renal Epithelial Cell Not Reportable Granular Casts 1-5 H (0) /lpf Urine Mucus Present A (None Prsent) 06/20/20 06/20/20 06/19/20 Range/Units 07:24 07:24 20:34 WBC 7.61 (4.8-10.8) K/uL RBC 3.58 L (4.7-6.1) M/uL Hgb 11.1 L (14.0-18.0) g/dL Hct 33.0 L (42-52) % MCV 92.2 (80-100) fL MCH 31.0 (25-34) pg MCHC 33.6 (32-36) g/dL RDW Std Deviation 45.1 (36.4-46.3) fL RDW Coeff of Marek 13.5 (11.5-14.5) % Plt Count 103 L (130-400) K/uL MPV 11.3 H (7.4-10.4) fL Immature Gran % (Auto) 0.3 % Neut % (Auto) 76.7 % Lymph % (Auto) 13.0 % [place] % (Auto) 9.9 % Eos % (Auto) 0.1 % Baso % (Auto) 0.0 % Neut # (Auto) 5.84 (1.4-6.5) K/uL Lymph # (Auto) 0.99 L (1.2-3.4) K/uL [place] # (Auto) 0.75 H (0.11-0.59) K/uL Eos # (Auto) 0.01 (0-0.5) K/uL Baso # (Auto) 0.00 (0-0.2) K/uL Immature Gran # (Auto) 0.02 (0.00-0.02) K/uL Sodium 138 (136-145) mmol/L Potassium 3.8 (3.5-5.1) mmol/L Chloride 104 (98-107) mmol/L Carbon Dioxide 28 (21-32) mmol/L Anion Gap 6.0 (3-11) BUN 11 (7-18) mg/dl Creatinine 0.94 (0.6-1.4) mg/dl Est Cr Clr Drug Dosing 60.3 ml/min Est GFR ( Amer) 90.9 Est GFR (Non-Af Amer) 78.4 BUN/Creatinine Ratio 11.2 (10-20) Glucose 165 H (70-99) mg/dl POC Glucose 182 H (70-99) mg/dl Estimat Average Glucose mg/dl Hemoglobin A1c (4.5-5.6) % Calcium 8.4 L (8.5-10.1) mg/dl Urine Color Urine Appearance (Clear) Urine pH (4.5-7.5) Ur Specific [place] (1.000-1.030) Urine Protein (Negative) Urine Glucose (UA) (Negative) Urine Ketones (Negative) Urine Blood (Negative) Urine Nitrite (Negative) Urine Bilirubin (Negative) Urine Urobilinogen (Negative) Ur Leukocyte Esterase (Negative) Urine WBC (Auto) (0-5) /hpf Urine RBC (Auto) (0-4) /hpf U Hyaline Cast (Auto) (0-5) /lpf U Epithel Cells (Auto) (0-5) /lpf Urine Bacteria (Auto) (Negative) Ur Renal Epithelial Cell Granular Casts (0) /lpf Urine Mucus (None Prsent) 06/19/20 06/19/20 06/19/20 Range/Units 17:33 14:17 12:23 WBC (4.8-10.8) K/uL RBC (4.7-6.1) M/uL Hgb (14.0-18.0) g/dL Hct (42-52) % MCV (80-100) fL MCH (25-34) pg MCHC (32-36) g/dL RDW Std Deviation (36.4-46.3) fL RDW Coeff of Marek (11.5-14.5) % Plt Count (130-400) K/uL MPV (7.4-10.4) fL Immature Gran % (Auto) % Neut % (Auto) % Lymph % (Auto) % [place] % (Auto) % Eos % (Auto) % Baso % (Auto) % Neut # (Auto) (1.4-6.5) K/uL Lymph # (Auto) (1.2-3.4) K/uL [place] # (Auto) (0.11-0.59) K/uL Eos # (Auto) (0-0.5) K/uL Baso # (Auto) (0-0.2) K/uL Immature Gran # (Auto) (0.00-0.02) K/uL Sodium (136-145) mmol/L Potassium (3.5-5.1) mmol/L Chloride (98-107) mmol/L Carbon Dioxide (21-32) mmol/L Anion Gap (3-11) BUN (7-18) mg/dl Creatinine (0.6-1.4) mg/dl Est Cr Clr Drug Dosing ml/min Est GFR ( Amer) Est GFR (Non-Af Amer) BUN/Creatinine Ratio (10-20) Glucose (70-99) mg/dl POC Glucose 173 H 149 H 138 H (70-99) mg/dl Estimat Average Glucose mg/dl Hemoglobin A1c (4.5-5.6) % Calcium (8.5-10.1) mg/dl Urine Color Urine Appearance (Clear) Urine pH (4.5-7.5) Ur Specific [place] (1.000-1.030) Urine Protein (Negative) Urine Glucose (UA) (Negative) Urine Ketones (Negative) Urine Blood (Negative) Urine Nitrite (Negative) Urine Bilirubin (Negative) Urine Urobilinogen (Negative) Ur Leukocyte Esterase (Negative) Urine WBC (Auto) (0-5) /hpf Urine RBC (Auto) (0-4) /hpf U Hyaline Cast (Auto) (0-5) /lpf U Epithel Cells (Auto) (0-5) /lpf Urine Bacteria (Auto) (Negative) Ur Renal Epithelial Cell Granular Casts (0) /lpf Urine Mucus (None Prsent) PG Care Time/CCT Total # of Minutes Spent Total Time Spent with Patient: Total time spent is greater than 50% in coordination of care (as documented) at patient's floor/unit and/or counseling patient: Coding Level of Care Code 93828 Subseq Hosp Care Lvl 3 Diagnoses Neurogenic claudication due to lumbar spinal stenosis M48.062 UTI (urinary tract infection) N39.0 Diabetes mellitus, type 2 E11.9 Hyperlipidemia E78.5 History of colorectal cancer Z85.048 Depression F32.9 DJD (degenerative joint disease) of hip M16.9 Arthritis M19.90 Acute blood loss anemia D62 DVT prophylaxis Z29.9
--- NOTE | 2020-06-20 11:40 | Orthopedic Progress Note ---
Date of Service June 20, 2020 Assessment & Plan (1) Neurogenic claudication due to lumbar spinal stenosis: Admission and Anticipated Discharge Date Admission Date: June 19, 2020 We will initiate physical therapy monitor his SYBIL output anticipate discharge kerry e in the next few days. Subjective Back pain controlled leg pain markedly improved. Physical Exam 2 Physical Exam: Patient appears comfortable is good strength testing. [facility] Vital Signs (Past 12 Hours) Vital Signs Temp Pulse Resp BP Pulse Ox 06/20/20 11:35 36.6 C 90 18 154/68 H 99 06/20/20 07:37 36.9 C 79 16 103/55 L 99 06/20/20 03:14 37.0 C 81 15 140/70 100 06/20/20 00:18 37.1 C 78 16 115/70 99
[2020-06-20] MEDS ORDERED: ACETAMINOPHEN 325 MG TAB PO STA (15:44)
[2020-06-20 16:27] LABS: Hematocrit (blood only) 32.6 % (42-52); Hemoglobin 11.2 g/dL (14.0-18.0); Mean Corpuscular Hgb Conc 34.4 g/dL (32-36); Mean Corpuscular Volume 90.3 fL (80-100); Mean Platelet Volume 11.5 fL (7.4-10.4); Platelet Count 106 K/uL (130-400); RDW Coefficient of Variation 13.4 % (11.5-14.5); RDW Standard Deviation 44.4 fL (36.4-46.3); Red Blood Count 3.61 M/uL (4.7-6.1); White Blood Count 7.64 K/uL (4.8-10.8)
[2020-06-20 16:44] LABS: BUN Creatinine Ratio 10.3 (10-20); Calcium 8.4 mg/dl (8.5-10.1); Creatinine Clr Calc Pharmacy 48.1 ml/min; Est GFR (African American) 69.1; Est GFR (Non-African American) 59.6
--- NOTE | 2020-06-20 16:48 | Electrocardiogram Report ---
Test Reason : Blood Pressure : / mmHG Vent. Rate : 101 BPM Atrial Rate : 101 BPM P-R Int : 150 ms QRS Dur : 096 ms QT Int : 342 ms P-R-T Axes : 051 037 052 degrees QTc Int : 443 ms Sinus tachycardia Otherwise normal ECG When compared with ECG of 07-JUN-2020 14:37, T wave amplitude has decreased in Anterior leads Confirmed by Vargas Dinh ([id number] on 06/20/2020 4:47:46 PM Referred By: Tomi Roa Confirmed By:Vargas Dinh
[2020-06-20] MEDS ORDERED: LINEZOLID CONSULT ACTIVE PRN (16:58)
[2020-06-20] MEDS ORDERED: SODIUM CHLORIDE 0.9% 1000ML 1,000 ML IV SCH (17:00)
[2020-06-20] MEDS ORDERED: AMOXICILLIN 500 MG CAP PO SCH (18:00)
[2020-06-20] MEDS: AMOXICILLIN 500 MG CAP PO SCH (19:41)
[2020-06-20] MEDS: ASCORBIC ACID 500 MG TAB PO SCH (19:42)
[2020-06-20] MEDS: ATORVASTATIN 20 MG TAB PO SCH (19:42)
[2020-06-20] MEDS: DOCUSATE SODIUM/SENNA 50/8.6MG TAB PO SCH (19:42)
[2020-06-20] MEDS: CALCIUM 600MG + VIT D 400 IU TAB PO SCH (19:43)
[2020-06-20] MEDS: FERROUS SULFATE 325 MG TAB PO SCH (19:43)
[2020-06-20] MEDS: TOCOPHERYL, DL-ALPHA 400 UNITS CAP PO SCH (19:44)
[2020-06-20] MEDS: VITAMIN B COMPLEX TAB PO SCH (19:44)
[2020-06-20] MEDS: MAGNESIUM OXIDE 400 MG TAB PO SCH (19:48)
[2020-06-20] MEDS ORDERED: LINEZOLID 600 MG TAB PO SCH (21:00)
[2020-06-21] MEDS: AMOXICILLIN 500 MG CAP PO SCH ×4 (01:09→21:55)
[2020-06-21] MEDS: POLYETHYLENE (MIRALAX) 17 GM PACK PO SCH ×6 (01:09→23:14)
[2020-06-21] MEDS: SODIUM CHLORIDE 0.9% 1000ML 1,000 ML IV SCH ×2 (03:34→10:18)
[2020-06-21] MEDS: OXYCODONE HCL IR 5 MG TAB (IMMEDIATE RELEASE) PO PRN (06:28)
[2020-06-21] MEDS: INSULIN ASPART 100 UNITS/ML 3 ML PEN SC SCH ×4 (08:11→20:28)
[2020-06-21 08:35] LABS: Hematocrit (blood only) 30.8 % (42-52); Hemoglobin 10.4 g/dL (14.0-18.0); Mean Corpuscular Hgb Conc 33.8 g/dL (32-36); Mean Corpuscular Volume 91.9 fL (80-100); RDW Coefficient of Variation 13.6 % (11.5-14.5); RDW Standard Deviation 46.3 fL (36.4-46.3); Red Blood Count 3.35 M/uL (4.7-6.1); White Blood Count 7.68 K/uL (4.8-10.8)
[2020-06-21 08:57] LABS: BUN Creatinine Ratio 8.8 (10-20); Calcium 8.4 mg/dl (8.5-10.1); Creatinine Clr Calc Pharmacy 68.3 ml/min; Est GFR (African American) 99.1; Est GFR (Non-African American) 85.5; Potassium 3.9 mmol/L (3.5-5.1)
[2020-06-21 08:58] LABS: Eosinophils # (auto) 0.01 K/uL (0-0.5); Eosinophils % (auto) 0.1 %; Immature Granulocytes # (auto) 0.01 K/uL (0.00-0.02); Immature Granulocytes % (auto) 0.1 %; Lymphocytes # (auto) 0.82 K/uL (1.2-3.4); Lymphocytes % (auto) 10.7 %; Mean Platelet Volume 10.8 fL (7.4-10.4); Monocytes # (auto) 0.86 K/uL (0.11-0.59); Monocytes % (auto) 11.2 %; Neutrophils # (auto) 5.98 K/uL (1.4-6.5); Neutrophils % (auto) 77.9 %; Platelet Count 98 K/uL (130-400); Platelet Estimate Decreased (Normal)
--- NOTE | 2020-06-21 11:15 | Orthopedic Progress Note ---
Date of Service June 21, 2020 Assessment & Plan (1) Neurogenic claudication due to lumbar spinal stenosis: Admission and Anticipated Discharge Date Admission Date: June 19, 2020 This time we will encourage him to ambulate as tolerated. We hope to discharge home tomorrow if stable. Subjective Patient's back pain is controlled leg symptoms markedly improved. Physical Exam Physical Exam: Patient is in bed he appears comfortable. He did strength testing. Results & Data ([facility]) Vital Signs (Past 12 Hours) Vital Signs Temp Pulse Pulse Resp BP Pulse Ox 06/21/20 07:59 37 C 92 H 18 114/66 94 06/21/20 03:30 37.1 C 88 19 138/65 95 06/21/20 01:27 37.4 C 97 H 18 129/72 97 06/21/20 00:00 100 H
--- NOTE | 2020-06-21 15:49 | Hospitalist Progress Note ---
Date of Service June 21, 2020 Assessment & Plan (1) Neurogenic claudication due to lumbar spinal stenosis: * POD #2 L4-S1 decompression with Dr. Roa on 06/19. Pre-op h/h 14.6/42.4. EBL 150cc. * PT/OT/pain management/DVT prophylaxis per primary service * H//h 10.4/30.8 on AM labs -- likely acute blood loss following surgery with SYBIL output as well as some dilutional from IVF. SYBIL output cumulative 1195 (as well as approximately 70cc in SYBIL during examination) -- continue to monitor * CBC in AM (2) UTI (urinary tract infection): * Previous UTI with Enterococcus species treated with Cipro (was sensitive), although repeat UA still seems infected, also with granular casts * On Clinda for surgery for prophylaxis * Follow repeat culture -- <1000 colonies, although did recent abx pre-op for prophylaxis * Will continue with amoxicillin for now (on day 2 of therapy) * Ordered 1L NSS bolus and IVF @ 125cc/hr on 06/20 and transferred to telemetry for tachycardia, fever and lactic 2.3, repeat trending down. * Cr 0.83 from 1.18 on 06/20 * BMP in AM (3) Diabetes mellitus, type 2: * A1c 6.0. Received steroids operatively * Holding outpatient metformin * ISS while inpatient * BSGs had been up to 226 evening 06/20 --> tightened CF/CR * Most recent bsg 175 * Continue to monitor (4) Hyperlipidemia: * Continue atorvastatin 20 mg HS (5) History of colorectal cancer: * s/p resection in 2004 with creation of colostomy, 2006 reversal of colostomy, then re-position colostomy in 2007 due to bile acid and constant diarrhea. * Had liver mets around 2007 which required 1/3 liver surgical resection. * Follows with oncology at [facility]. (6) Depression: * Controlled off medications (7) DJD (degenerative joint disease) of hip: * hx of such, chronic (8) Arthritis: * Cont calcium, Vit D and supplements (9) Acute blood loss anemia: * See above (10) Fever: * Temp 38C this evening -- could be post-op inflammation * UTI being covered with Amoxicillin as above * Will order CXR given crackles on examination * BCx NGTD * Not on any DVT prophylaxis given back surgery, although calves non-tender, non-erythematous or edematous on examination (11) Renal cyst: * Renal U/S Oct 2019 with slight increase of left renal cyst, measuring 3.7cm, up from previous 3.3cm in 2016 * Follows with PCP Dr. Pedro Hui * Patient states he has had issues with low UO for at least the past 10 years -- consider f/u with Urology at PCP discretion outpatient (12) DVT prophylaxis: * teds, scds CODE: Full Has been sinus 70-90s on monitor without issue. Dispo: From home, lives with son. Per discussion with Dr. Roa, possible discharge tomorrow. Hospitalist service will follow along. Admission and Anticipated Discharge Date Admission Date: June 19, 2020 Supervising Physician Co-Signing Physician Notes Attending Attestation - Chart reviewed, care plan d/w GASPER Hannon. I agree w/ the hernandez components of her documentation. POD #2 s/p lumbar decompression-fusion procedure by Dr Roa. Again low-grade fever today. Post-op inflammatory response vs enterococcal UTI. Agree with continued PO amoxicillin. Other medical problems stable. Roque Parikh MD Subjective Patient evaluated early this afternoon. Pain controlled. Tolerating diet. No issues with ostomy. Normal output per patient. States no increased joint pain with initiation of amoxicillin, although he does state he gets joint pain at the end of the course of treatment with penicillins. Discussed that we will continue to monitor while inpatient and if he develops issues we can switch him to Cipro, although recommended treatment with amoxicillin best if able to tolerate. Denies any anaphylactic reaction in the past. Discussed renal cyst on previous imaging. He states it has been there and he follows with PCP but has never been seen by Urology in the past for decreased UO. Would like to follow up with his PCP and not particularly keen on repeating renal U/S at this time. Denies further fever. Denies chills, chest pain, shortness of breath, cough, abdominal pain, nausea, vomiting, dysuria at this time. Increased urine output since initiation of fluids. Decreased burning compared to last evening. Of note, patient did have temp up to 38C following encounter. CXR pending given crackles. Review of Systems Review of Systems: All systems reviewed & are unremarkable except as noted in HPI & below Physical Exam Constitutional: WD/WN, vitals as above no acute distress Eyes: + anicteric sclerae and PERRL ENMT: external ear and nose normal, oropharynx normal Neck: normal visual inspection Respiratory: normal respiratory effort, lungs clear to auscultation Auscultation: + crackles (bibasilar crackles) Cardiovascular: Rate/Rhythm: regular rate and regular rhythm Heart Sounds: + murmur (2/6 systolic ejection murmur) Vessels: no JVD Extremities: no calf tenderness and no edema Gastrointestinal (Abdomen): Inspection/Auscultation: normal bowel sounds Percussion/Palpation: abdomen soft; abdomen nontender ostomy to LLQ with liquid stool Musculoskeletal: strength equal 4/5 b/l LE NVI calves non-tender to palpation bilaterally Dressing to lumbar spine c/d/i with SYBIL with approximately 75cc bloody drainage Neurologic: patellar DTR's 2+ bilat, sensation intact and PERRL, EOMI, accommodation nl, no face palsy, no dysarthria Psychiatric: A+Ox3, euthymic affect Lymphatic: no cervical or axillary lymphadenopathy Results & Data Results & Data ([facility]) Vital Signs (Past 12 Hours) Vital Signs Temp Pulse Pulse Resp BP BP Pulse Ox 06/21/20 15:09 38 C H 72 20 130/62 97 06/21/20 11:27 36.9 C 87 18 109/55 L 96 06/21/20 08:00 82 06/21/20 07:59 37 C 92 H 18 114/66 94 Laboratory Results 06/21/20 06/21/20 06/21/20 Range/Units 11:27 08:23 08:23 WBC 7.68 (4.8-10.8) K/uL RBC 3.35 L (4.7-6.1) M/uL Hgb 10.4 L (14.0-18.0) g/dL Hct 30.8 L (42-52) % MCV 91.9 (80-100) fL MCH 31.0 (25-34) pg MCHC 33.8 (32-36) g/dL RDW Std Deviation 46.3 (36.4-46.3) fL RDW Coeff of Marek 13.6 (11.5-14.5) % Plt Count 98 L (130-400) K/uL MPV 10.8 H (7.4-10.4) fL Immature Gran % (Auto) 0.1 % Neut % (Auto) 77.9 % Lymph % (Auto) 10.7 % [place] % (Auto) 11.2 % Eos % (Auto) 0.1 % Baso % (Auto) 0.0 % Neut # (Auto) 5.98 (1.4-6.5) K/uL Lymph # (Auto) 0.82 L (1.2-3.4) K/uL [place] # (Auto) 0.86 H (0.11-0.59) K/uL Eos # (Auto) 0.01 (0-0.5) K/uL Baso # (Auto) 0.00 (0-0.2) K/uL Immature Gran # (Auto) 0.01 (0.00-0.02) K/uL Platelet Estimate Decreased L (Normal) Sodium 137 (136-145) mmol/L Potassium 3.9 (3.5-5.1) mmol/L Chloride 106 (98-107) mmol/L Carbon Dioxide 26 (21-32) mmol/L Anion Gap 5.0 (3-11) BUN 7 D (7-18) mg/dl Creatinine 0.83 D (0.6-1.4) mg/dl Est Cr Clr Drug Dosing 68.3 ml/min Est GFR ( Amer) 99.1 Est GFR (Non-Af Amer) 85.5 BUN/Creatinine Ratio 8.8 L (10-20) Glucose 195 H (70-99) mg/dl POC Glucose 188 H (70-99) mg/dl Lactate (0.4-2.0) mmol/L Calcium 8.4 L (8.5-10.1) mg/dl 06/21/20 06/20/20 06/20/20 Range/Units 07:49 20:41 18:23 WBC (4.8-10.8) K/uL RBC (4.7-6.1) M/uL Hgb (14.0-18.0) g/dL Hct (42-52) % MCV (80-100) fL MCH (25-34) pg MCHC (32-36) g/dL RDW Std Deviation (36.4-46.3) fL RDW Coeff of Marek (11.5-14.5) % Plt Count (130-400) K/uL MPV (7.4-10.4) fL Immature Gran % (Auto) % Neut % (Auto) % Lymph % (Auto) % [place] % (Auto) % Eos % (Auto) % Baso % (Auto) % Neut # (Auto) (1.4-6.5) K/uL Lymph # (Auto) (1.2-3.4) K/uL [place] # (Auto) (0.11-0.59) K/uL Eos # (Auto) (0-0.5) K/uL Baso # (Auto) (0-0.2) K/uL Immature Gran # (Auto) (0.00-0.02) K/uL Platelet Estimate (Normal) Sodium (136-145) mmol/L Potassium (3.5-5.1) mmol/L Chloride (98-107) mmol/L Carbon Dioxide (21-32) mmol/L Anion Gap (3-11) BUN (7-18) mg/dl Creatinine (0.6-1.4) mg/dl Est Cr Clr Drug Dosing ml/min Est GFR ( Amer) Est GFR (Non-Af Amer) BUN/Creatinine Ratio (10-20) Glucose (70-99) mg/dl POC Glucose 205 H 226 H (70-99) mg/dl Lactate 2.2 H* (0.4-2.0) mmol/L Calcium (8.5-10.1) mg/dl 06/20/20 06/20/20 06/20/20 Range/Units 16:19 16:11 16:11 WBC 7.64 (4.8-10.8) K/uL RBC 3.61 L (4.7-6.1) M/uL Hgb 11.2 L (14.0-18.0) g/dL Hct 32.6 L (42-52) % MCV 90.3 (80-100) fL MCH 31.0 (25-34) pg MCHC 34.4 (32-36) g/dL RDW Std Deviation 44.4 (36.4-46.3) fL RDW Coeff of Marek 13.4 (11.5-14.5) % Plt Count 106 L (130-400) K/uL MPV 11.5 H (7.4-10.4) fL Immature Gran % (Auto) % Neut % (Auto) % Lymph % (Auto) % [place] % (Auto) % Eos % (Auto) % Baso % (Auto) % Neut # (Auto) (1.4-6.5) K/uL Lymph # (Auto) (1.2-3.4) K/uL [place] # (Auto) (0.11-0.59) K/uL Eos # (Auto) (0-0.5) K/uL Baso # (Auto) (0-0.2) K/uL Immature Gran # (Auto) (0.00-0.02) K/uL Platelet Estimate (Normal) Sodium 136 (136-145) mmol/L Potassium 4.0 (3.5-5.1) mmol/L Chloride 101 (98-107) mmol/L Carbon Dioxide 29 (21-32) mmol/L Anion Gap 6.0 (3-11) BUN 12 (7-18) mg/dl Creatinine 1.18 (0.6-1.4) mg/dl Est Cr Clr Drug Dosing 48.1 ml/min Est GFR ( Amer) 69.1 Est GFR (Non-Af Amer) 59.6 BUN/Creatinine Ratio 10.3 (10-20) Glucose 210 H (70-99) mg/dl POC Glucose (70-99) mg/dl Lactate 2.3 H* (0.4-2.0) mmol/L Calcium 8.4 L (8.5-10.1) mg/dl PG Care Time/CCT Total # of Minutes Spent Total Time Spent with Patient: Total time spent is greater than 50% in coordination of care (as documented) at patient's floor/unit and/or counseling patient: Coding Level of Care Code 90424 Subseq Hosp Care Lvl 3 Diagnoses Neurogenic claudication due to lumbar spinal stenosis M48.062 UTI (urinary tract infection) N39.0 Diabetes mellitus, type 2 E11.9 Hyperlipidemia E78.5 History of colorectal cancer Z85.048 Depression F32.9 DJD (degenerative joint disease) of hip M16.9 Arthritis M19.90 Acute blood loss anemia D62 Fever R50.9 Renal cyst N28.1 DVT prophylaxis Z29.9
--- NOTE | 2020-06-21 17:32 | XRay Report ---
TWO VIEW CHEST CLINICAL HISTORY: Fever. FINDINGS: AP and lateral chest radiographs are compared to study dated 06/07/2020. Correlation is made with chest CT dated 02/10/2007. The cardiomediastinal silhouette is unremarkable noting atherosclerot ic calcification of the thoracic aorta. Enlargement of the left main pulmonary artery is unchanged fr om prior studies. The lungs and pleural spaces are clear. There is no pneumothorax. The skeletal stru ctures are osteopenic. Degenerative change is seen in the thoracic spine. Arthritic change is noted i n the right shoulder. The bony thorax appears intact. IMPRESSION: No active disease in the chest. ACT 112: Negative or not required by law. Electronically signed by: Talha Carroll M.D. 06/21/2020 5:31 PM
[2020-06-21] MEDS: ACETAMINOPHEN 500 MG TAB PO PRN (17:52)
[2020-06-21] MEDS: MAGNESIUM OXIDE 400 MG TAB PO SCH (20:27)
[2020-06-21] MEDS: ASCORBIC ACID 500 MG TAB PO SCH (20:28)
[2020-06-21] MEDS: ATORVASTATIN 20 MG TAB PO SCH (20:28)
[2020-06-21] MEDS: FERROUS SULFATE 325 MG TAB PO SCH (20:28)
[2020-06-21] MEDS: CALCIUM 600MG + VIT D 400 IU TAB PO SCH (20:28)
[2020-06-21] MEDS: VITAMIN B COMPLEX TAB PO SCH (20:28)
[2020-06-21] MEDS: TOCOPHERYL, DL-ALPHA 400 UNITS CAP PO SCH (20:28)
[2020-06-21] MEDS: DOCUSATE SODIUM/SENNA 50/8.6MG TAB PO SCH (20:29)
[2020-06-22] MEDS: AMOXICILLIN 500 MG CAP PO SCH ×2 (06:45→12:53)
[2020-06-22] MEDS: POLYETHYLENE (MIRALAX) 17 GM PACK PO SCH ×2 (06:45→12:53)
[2020-06-22 06:50] LABS: Hematocrit (blood only) 28.3 % (42-52); Hemoglobin 9.7 g/dL (14.0-18.0); Mean Corpuscular Hemoglobin 30.9 pg (25-34); Mean Corpuscular Hgb Conc 34.3 g/dL (32-36); Mean Corpuscular Volume 90.1 fL (80-100); RDW Coefficient of Variation 13.7 % (11.5-14.5); RDW Standard Deviation 45.3 fL (36.4-46.3); Red Blood Count 3.14 M/uL (4.7-6.1); White Blood Count 5.82 K/uL (4.8-10.8)
[2020-06-22 07:17] LABS: BUN Creatinine Ratio 10.7 (10-20); Calcium 8.5 mg/dl (8.5-10.1); Creatinine Clr Calc Pharmacy 79.9 ml/min; Est GFR (African American) 105.6; Est GFR (Non-African American) 91.1
[2020-06-22 07:18] LABS: Mean Platelet Volume 11.4 fL (7.4-10.4); Platelet Count 79 K/uL (130-400)
[2020-06-22] MEDS: INSULIN ASPART 100 UNITS/ML 3 ML PEN SC SCH ×2 (08:54→12:52)
[2020-06-22] MEDS ORDERED: CALCIUM CARBONATE 1250MG TAB PO SCH (09:00)
--- NOTE | 2020-06-22 11:06 | Hospitalist Progress Note ---
Date of Service June 22, 2020 Assessment & Plan (1) Neurogenic claudication due to lumbar spinal stenosis: * POD #3 L4-S[address] Roa on 06/19. Pre-op h/h 14.6/42.4. EBL 150cc. * PT/OT/pain management/DVT prophylaxis per primary service * H/h 9.7/28.3 -- total SYBIL drainage 1235mL although only 40cc from last shift * Drain removal at discretion of primary service * Rec f/u with PCP for repeat CBC to ensure stability (2) UTI (urinary tract infection): * Previous UTI with Enterococcus species treated with Cipro (was sensitive), although repeat UA still seems infected, also with granular casts * On Clinda for surgery for prophylaxis * Follow repeat culture -- <1000 colonies, although did recent abx pre-op for prophylaxis * Will continue with amoxicillin for now (on day 2 of therapy) * Ordered 1L NSS bolus and IVF @ 125cc/hr on 06/20 and transferred to telemetry for tachycardia, fever and lactic 2.3, repeat trending down. * Cr 0.71 from 1.18 on 06/20 * Would recommend additional 7 days of Amoxicillin 500mg QID to complete treatment and follow up with PCP outpatient (3) Diabetes mellitus, type 2: * A1c 6.0. Received steroids operatively * Holding outpatient metformin * ISS while inpatient * BSGs improved with tightening of CF/CR last evening * Resume home metformin at discharge (4) Hyperlipidemia: * Continue atorvastatin 20 mg HS (5) History of colorectal cancer: * s/p resection in 2004 with creation of colostomy, 2006 reversal of colostomy, then re-position colostomy in 2007 due to bile acid and constant diarrhea. * Had liver mets around 2007 which required 1/3 liver surgical resection. * Follows with oncology at [facility]. (6) Depression: * Controlled off medications (7) DJD (degenerative joint disease) of hip: * hx of such, chronic (8) Arthritis: * Cont calcium, Vit D and supplements (9) Acute blood loss anemia: * See above (10) Fever: * Temp 38C evening 06/21 -- could be post-op inflammation. Afebrile this morning, WBC 5k. No other s/sx infection and is already being treated with Amoxicillin as above for UTI -- to be continued at discharge and have PCP f/u * UTI being covered with Amoxicillin as above * CXR without acute process * BCx NGTD * Not on any DVT prophylaxis given back surgery, although calves non-tender, non-erythematous or edematous on examination (11) Renal cyst: * Renal U/S Oct 2019 with slight increase of left renal cyst, measuring 3.7cm, up from previous 3.3cm in 2016 * Follows with PCP Dr. Pedro Hui * Patient states he has had issues with low UO for at least the past 10 years -- consider f/u with Urology at PCP discretion outpatient * UO 1.2ml/kg/hr (12) DVT prophylaxis: * teds, scds CODE: Full Dispo: From home, lives with son. Per discussion with Dr. Roa, possible discharge per primary service today. Recommend follow up with PCP for repeat CBC to monitor blood counts. Admission and Anticipated Discharge Date Admission Date: June 19, 2020 Supervising Physician Co-Signing Physician Notes Attending Attestation - Chart reviewed, care plan d/w GASPER Hannon. I agree w/ the hernandez components of her documentation. POD #3 s/p lumbar decompression-fusion procedure by Dr Roa. Low-grade fever resolved. ? Post-op inflammatory response vs enterococcal UTI. Either way will finish a course of PO amoxicillin. Other medical problems stable. vitals stable. medically fit for discharge. Roque Parikh MD Subjective Patient evaluated this morning. Had been up with therapy and walked the halls twice and did stairs without difficulty. Eating/drinking without difficulty. Just emptied ostomy. Denies fever, chills, chest pain, shortness of breath, abdominal pain. Making increased amounts of clear yellow urine compared to previous days. He does note that the plastic covering on the sheets does make him warm and uncomfortable sleeping. Anxious for return home to sleep in his own bed. Hopeful for discharge home this afternoon after seen by Dr. Roa. Review of Systems Review of Systems: All systems reviewed & are unremarkable except as noted in HPI & below Physical Exam Constitutional: WD/WN, vitals as above no acute distress Eyes: + anicteric sclerae and PERRL ENMT: external ear and nose normal, oropharynx normal Neck: normal visual inspection Respiratory: normal respiratory effort, lungs clear to auscultation Cardiovascular: Rate/Rhythm: regular rate and regular rhythm Heart Sounds: + murmur (2/6 systolic ejection murmur) Vessels: no JVD Extremities: no calf tenderness and no edema Gastrointestinal (Abdomen): Inspection/Auscultation: normal bowel sounds Percussion/Palpation: abdomen soft; abdomen nontender ostomy to LLQ without issue Musculoskeletal: dressing to lumbar spine c/d/i SYBIL with approximately 25cc bloody drainage Neurologic: patellar DTR's 2+ bilat, sensation intact and PERRL, EOMI, accommodation nl, no face palsy, no dysarthria Psychiatric: A+Ox3, euthymic affect Lymphatic: no cervical or axillary lymphadenopathy Results & Data Results & Data ([facility]) Vital Signs (Past 12 Hours) Vital Signs Temp Pulse Resp BP Pulse Ox 06/22/20 07:21 36.8 C 68 18 119/68 98 06/22/20 00:00 36.7 C 78 18 122/69 99 Laboratory Results 06/22/20 06/22/20 06/22/20 Range/Units 07:41 06:33 06:33 WBC 5.82 (4.8-10.8) K/uL RBC 3.14 L (4.7-6.1) M/uL Hgb 9.7 L (14.0-18.0) g/dL Hct 28.3 L (42-52) % MCV 90.1 (80-100) fL MCH 30.9 (25-34) pg MCHC 34.3 (32-36) g/dL RDW Std Deviation 45.3 (36.4-46.3) fL RDW Coeff of Marek 13.7 (11.5-14.5) % Plt Count 79 L (130-400) K/uL MPV 11.4 H (7.4-10.4) fL Sodium 137 (136-145) mmol/L Potassium 4.0 (3.5-5.1) mmol/L Chloride 105 (98-107) mmol/L Carbon Dioxide 27 (21-32) mmol/L Anion Gap 5.0 (3-11) BUN 8 (7-18) mg/dl Creatinine 0.71 (0.6-1.4) mg/dl Est Cr Clr Drug Dosing 79.9 ml/min Est GFR ( Amer) 105.6 Est GFR (Non-Af Amer) 91.1 BUN/Creatinine Ratio 10.7 (10-20) Glucose 159 H (70-99) mg/dl POC Glucose 163 H (70-99) mg/dl Calcium 8.5 (8.5-10.1) mg/dl Crossmatch 06/21/20 06/21/20 06/21/20 Range/Units 20:24 16:22 11:27 WBC (4.8-10.8) K/uL RBC (4.7-6.1) M/uL Hgb (14.0-18.0) g/dL Hct (42-52) % MCV (80-100) fL MCH (25-34) pg MCHC (32-36) g/dL RDW Std Deviation (36.4-46.3) fL RDW Coeff of Marek (11.5-14.5) % Plt Count (130-400) K/uL MPV (7.4-10.4) fL Sodium (136-145) mmol/L Potassium (3.5-5.1) mmol/L Chloride (98-107) mmol/L Carbon Dioxide (21-32) mmol/L Anion Gap (3-11) BUN (7-18) mg/dl Creatinine (0.6-1.4) mg/dl Est Cr Clr Drug Dosing ml/min Est GFR ( Amer) Est GFR (Non-Af Amer) BUN/Creatinine Ratio (10-20) Glucose (70-99) mg/dl POC Glucose 185 H 175 H 188 H (70-99) mg/dl Calcium (8.5-10.1) mg/dl Crossmatch 06/19/20 Range/Units 08:57 WBC (4.8-10.8) K/uL RBC (4.7-6.1) M/uL Hgb (14.0-18.0) g/dL Hct (42-52) % MCV (80-100) fL MCH (25-34) pg MCHC (32-36) g/dL RDW Std Deviation (36.4-46.3) fL RDW Coeff of Marek (11.5-14.5) % Plt Count (130-400) K/uL MPV (7.4-10.4) fL Sodium (136-145) mmol/L Potassium (3.5-5.1) mmol/L Chloride (98-107) mmol/L Carbon Dioxide (21-32) mmol/L Anion Gap (3-11) BUN (7-18) mg/dl Creatinine (0.6-1.4) mg/dl Est Cr Clr Drug Dosing ml/min Est GFR ( Amer) Est GFR (Non-Af Amer) BUN/Creatinine Ratio (10-20) Glucose (70-99) mg/dl POC Glucose (70-99) mg/dl Calcium (8.5-10.1) mg/dl Crossmatch See Detail Diagnostic Findings CXR IMPRESSION: No active disease in the chest. PG Care Time/CCT Total # of Minutes Spent Total Time Spent with Patient: Total time spent is greater than 50% in coordination of care (as documented) at patient's floor/unit and/or counseling patient: Coding Level of Care Code 82893 Subseq Hosp Care Lvl 2 Diagnoses Neurogenic claudication due to lumbar spinal stenosis M48.062 UTI (urinary tract infection) N39.0 Diabetes mellitus, type 2 E11.9 Hyperlipidemia E78.5 History of colorectal cancer Z85.048 Depression F32.9 DJD (degenerative joint disease) of hip M16.9 Arthritis M19.90 Acute blood loss anemia D62 Fever R50.9 Renal cyst N28.1 DVT prophylaxis Z29.9
--- NOTE | 2020-06-22 12:13 | Discharge Summary ---
Date of Service June 22, 2020 Admission HPI Per Admitting Provider This is a 75-year-old male who presents with worsening back and leg pain. After failing course of nonoperative care is here for surgical invention. Principal Diagnosis Lumbar spinal stenosis with neurogenic claudication Discharge Data Allergies Allergy/AdvReac Type Severity Reaction Status Date / Time Penicillins AdvReac Unknown JOINT ACHES Verified 06/19/20 09:00 Consultations 06/19/20 13:59 Consult Case Management - Discharge Planning Routine Consult Hospitalist Routine Procedures Performed Operation Date: 06/19/20 10:00 Actual Procedures p L4-S1 Decompression and Fusion, Spinal Cord Monitoring - Tomi Roa DO Ordered Studies 06/19/20 07:00 FL fluoroscopy <1hr Routine FL lumbar spine 2-3V Routine Hospital Course (1) Neurogenic claudication due to lumbar spinal stenosis: Patient underwent lumbar decompression fusion tolerated well second orthopedic for postoperative. He was up and ambulating leg pain improved. He was struggling with the UTI and initiate the appropriate antibiotics. Nevertheless his SYBIL drain decreased probably. Pain well controlled. Excellent strength testing. Subsequent discharge home. Discharge orders and instructions from the chart for further review. Total Time Total Time Spent Total Time Spent (In Minutes): 20 minutes Discharge Plan Discharge Items Patient Disposition: Home - Self-Care Reason For Visit: Unspecified Thoracic, Thoracolumbar Discharge Diagnosis: Lumbar spinal stenosis with neurogenic claudication Activity: As commented below Non-emergency contact: Primary Care Provider Call non-emergency contact if: you have any medication questions Follow-up/Referrals: Niraj Cornejo MD [Primary Care Provider] - 06/27/20 11:30 am (You have a follow up appt with Dr Cornejo, on ThursdayJune 27 at 1130. If this appt does not fit your schedule, please call [phone] to reschedule. Please remember your face mask, and arrive 15 minutes prior to your appt. ) Diet: Regular Ambulatory Orders: Complete Blood Count no Diff (Timed) Timeframe: 3 Days Location: Determined by Patient Ordered By: Madhavi Mireles Attending Provider Instructions: ACTIVITY RECOMMENDATIONS: SELF CARE INSTRUCTIONS AFTER THORACIC/LUMBAR FUSIONS 1. You may walk to your tolerance. It is good exercise for your legs and back. Expect some back and intermittent leg aches and pains. 2. You may perform "counter-top" level activities (make a sandwich, kelsey with a project, etc.). 3. No bending or lifting of more than 10 pounds or back twisting of any nature (roll like a log when turning in bed). 4. You may ride in a car for 20-30 minutes at a time. No driving until after your first visit with your doctor. 5. Frequent changes of position and restricting sitting to 30 minutes at a time will help limit the amount of back spasms and stiffness you may experience. 6. You may discontinue the use of ambulatory aids (cane, crutches, etc.) once your strength and confidence allow. 7. You may vending machine refiller the shower and let water strike your incision when you arrive home at least once daily. Do not take a tub bath, sit in a hot tub or go into a swimming pool until after your first recheck in the office. SPECIAL CARE INSTRUCTIONS: VERY IMPORTANT TO READ AND REVIEW A. Your surgical incision has been closed with a cosmetic suture under the skin that will dissolve in about 6 weeks. In 14 days, you can use a pair of clean scissors and cut the suture that is left outside of the skin at the ends of your incision. 1. The small skin tapes can be removed 7 days after surgery if they have not fallen off by that point. 2. You may keep the wound open to air as much as possible to promote healing after post-op day number 5 unless told otherwise by your doctor. 3. If you think the wound looks like it is becoming infected (redness or worsening drainage) and/or you are experiencing fever, chill or worsening back pain and muscle spasms, contact the office so that we may evaluate you as soon as possible. B. Complications are uncommon, but please contact us if you have any signs or symptoms of: 1. wound infection (fever higher than 102.5 degrees F, redness, separation of wound, drainage, or increasing pain from the incision) 2. blood clots in legs (pain, swelling, redness and warmth in legs) 3. urinary tract infection (fever higher than 102.5 degrees F, burning upon urination or increased frequency of urination) 4. nerve problems (inability to walk on your toes or heels, numbness, loss of bowel or bladder control) 5. any other symptoms that concern you C. Please call the office at if you have any concerns or questions about your operation or recovery. D. No smoking! Smoking drastically decreases the chance of a solid fusion. E. Do not take any anti-inflammatory medications (Indocin, Advil, Motrin, Aspirin, Naprosyn, etc.) as these may inhibit the chance of a solid fusion. Tylenol is okay to take for pain. MANAGING PAIN AFTER SPINAL SURGERY 1. Narcotic medication is intended for short-term use and will be provided for surgical pain. Surgical pain usually lasts for a period of 4-6 weeks. Narcotic medication includes Percocet, Vicodin, Darvocet, Tylenol #3 or Lortab. 2. Longer-term pain is more appropriately treated with non-narcotic medication such as Tylenol ES. 3. Muscle spasm is not appropriately treated with narcotics. Muscle relaxers such as Soma, Flexeril or Skelaxin can be used along with Tylenol ES. 4. Remember that we all live with some "aches and pains". This is not unusual or uncommon after an injury or as we get older. a. Back pain is expected and may include muscle spasms for 4 to 6 weeks after surgery. The pain should gradually improve. If the pain worsens for no apparent reason, please contact the office. b. Intermittent leg pain may also be experienced and should not be concerned about unless it worsens for no apparent reason. If so, please contact the office. 5. We will provide appropriate medication within the normal guidelines of their prescribed use. We will also be very cautious and aware of potential abuse and extended duration of patients' medication needs. a. Pain medications are for your comfort and to assist with sleep and rest so that the tissue can heal. They are not provided in order to return to normal activity and should not be used through the day. To do so or worsening pain at night can result from ongoing tissue damage and development of tolerance to the prescribed medicine. 6. Please allow 2-3 days to process refills. Prescriptions will not be mailed but must be picked up at the office. FOLLOW UP VISIT: Keep your scheduled follow-up appointment. Any questions, please call the office at . Addtl Converter Supervisor Provider Instructions: You have been provided a slip to have repeat blood counts down to ensure your hemoglobin is stable. Please follow up with your primary care provider at discharge. You were also sent in prescription for amoxicillin to continue for UTI and should follow up with Dr. Pedro Hui as discussed. This medication should be taken THREE TIMES daily. You have not had issues with this medication during admission and have been receiving it since 06/20/20. Please also follow up with him regarding the renal cyst on your previous ultrasound. It has been a pleasure being a part of the medical team providing for you while you have been in the hospital. Take care! Pending Studies at Discharge: No Stand-Alone Forms: My [facility] Keemotion, Smoking Cessation Medications and DC Order Prescriptions: New oxycodone 5 mg tablet 5 mg PO Q6H PRN (Reason: pain, severe) Qty: 20 RF: 0 tramadol 50 mg tablet 50 mg PO Q6H PRN (Reason: pain, moderate) Qty: 20 RF: 0 amoxicillin 500 mg Capsule 500 mg PO Q8 Qty: 30 RF: 0 Continued Calcium (Caltrate) 600 MG tablet 1,200 mg PO DAILY Qty: 0 RF: 0 metformin 500 mg Tablet 500 mg PO BID RF: 0 ascorbic acid (vitamin C) [Vitamin C] 1,000 mg Tablet 1,000 mg PO QPM RF: 0 atorvastatin 20 mg Tablet 20 mg PO QPM RF: 0 Calcium 600 + D(3) 600 mg calcium- 200 unit Capsule 1 cap PO QPM RF: 0 Betacarotine 2,500 mg PO QAM RF: 0 magnesium oxide 400 mg magnesium Capsule 400 mg PO QPM RF: 0 vitamin B complex Tablet 1 tab PO QPM RF: 0 vitamin E 400 unit Capsule 800 unit PO QPM RF: 0 Potassium 1 tab PO QPM RF: 0 zinc acetate 50 mg (zinc) Capsule 50 mg PO QPM RF: 0 ferrous sulfate 325 mg (65 mg iron) Tablet 325 mg PO QPM RF: 0 Injection 1 dose INJ MONTHLY RF: 0 Discharge Orders: Discharge Order (Routine); Ordered 06/22/20 Ordered By: Tomi Crespo/Other Patient Handouts: Managing Type 2 Diabetes Admission Data Admit Date/Time: 06/19/20 12:26 Attending Provider: Tomi Roa Admit Provider: Tomi Roa Primary Care Provider: Niraj Cornejo Other Providers: Roque Parikh Thomas E.
[2020-06-22] MEDS: OXYCODONE HCL IR 5 MG TAB (IMMEDIATE RELEASE) PO PRN (14:23)
== END 2020-06-22 14:34 | disposition home or self-care (01) | DRG 454 ==
LOC: ASU 08:26 → 3E 12:26 → 2N 06-20 18:14